=== PATIENT | male | born 1930 | race Caucasian/White ===

== ENCOUNTER 2017-07-19 11:33 | Observation (INO) | payer MEDICARE, BC ==
[~2017-07-19] VITALS: Ht 193 cm; Wt 84.1 kg
[2017-07-19 12:21] LABS: EOS # 0.3 (0.04-0.40); EOS % 4.4 % (0.0-4.0); HEMATOCRIT 31.4 % (42.0-52.0); HEMOGLOBIN 9.7 g/dL (13.5-18.0); LYMPH# 1.2 (1.50-4.00); MEAN CELL VOLUME 89 fl (78-100); MEAN CORPUSCULAR HEMOGLOBIN 28 pg (27-31); MEAN CORPUSCULAR HGB CONC 31 g/dL (33-37); MEAN PLATELET VOLUME 9.6 fl (7.4-10.4); MONO # 0.9 (0.20-0.80); NEU # 4.9 (1.40-6.50); PLATELET COUNT 235 K/mm3 (130-400); RED BLOOD COUNT 3.52 M/mm3 (4.20-5.60); RED CELL DISTRIBUTION WIDTH 14.4 % (11.5-14.5); WHITE BLOOD COUNT 7.4 K/mm3 (4.8-10.8)
[2017-07-19 12:22] LABS: ALBUMIN 3.5 g/dL (3.5-5.0); BUN/CREATININE RATIO 13.7 (6.0-26.0); CALCIUM 8.2 mg/dL (8.4-10.2); POTASSIUM 4.4 mmol/L (3.6-5.0); TOTAL BILIRUBIN 0.4 mg/dL (0.2-1.3); TOTAL PROTEIN 6.7 g/dL (6.3-8.2)
[2017-07-19 12:51] LABS: PROTHROMBIN TIME 12.7 SECONDS (9.0-12.0)
[2017-07-19] MEDS ORDERED: CARBIDOPA/LEVODOPA PO (13:02)
[2017-07-19] MEDS ORDERED: ATORVASTATIN CA80 MG PO (13:03)
[2017-07-19] MEDS ORDERED: LEVOTHYROXINE0.05 MG PO (13:04)
[2017-07-19] MEDS ORDERED: AMIODARONE200 MG PO (13:04)
[2017-07-19] MEDS ORDERED: CELEXA 20MG20 MG/TA1 PO (13:04)
[2017-07-19] MEDS ORDERED: CYCLOBENZ5 MG PO (13:05)
[2017-07-19] MEDS ORDERED: GABAPENTIN100 MG PO (13:05)
[2017-07-19] MEDS ORDERED: B-COMPLEX TABL0.4 MG PO (13:05)
[2017-07-19] MEDS ORDERED: WARFARIN SOD5 MG PO (13:07)
[2017-07-19] MEDS ORDERED: WARFARIN SODIU2.5 MG PO (13:07)
[2017-07-19] MEDS ORDERED: RIVASTIGMINE1.5 MG PO (13:08)
[2017-07-19] MEDS ORDERED: GLYCOLAX17 GM/DOSE PO (13:09)
[2017-07-19] MEDS ORDERED: HCTZ 25MG25 MG PO (13:10)
[2017-07-19] MEDS ORDERED: BACITRACIN TOPIC1 TU TP (13:35)
[2017-07-19] MEDS ORDERED: ADULT ASPIRIN R81 MG PO (13:36)
[2017-07-19] MEDS ORDERED: COLACE100 M1 PO (13:36)
[2017-07-19] MEDS ORDERED: TYLENOL EXTRA500 M2 PO (13:38)
[2017-07-19] MEDS ORDERED: VITAMIN D 1001000 IU PO (13:38)
[2017-07-19] MEDS ORDERED: OCUVITE ADULT1 EACH PO (13:39)
[2017-07-19] MEDS ORDERED: MULTI-VITAMIN1 EACH PO (13:39)
[2017-07-19] MEDS ORDERED: MAGNESIUM400 M1 PO (13:40)
[2017-07-19] MEDS ORDERED: TYLENOL 325MG325 MG PO (13:43)
[2017-07-19] MEDS ORDERED: MAALOX ADVANCE355 M1 PO (13:44)
[2017-07-19] MEDS ORDERED: GOOD NEIGH1200 MG/15 PO (13:45)
[2017-07-19] MEDS ORDERED: KAOPECTATE262 MG/15 PO (13:46)
[2017-07-19] MEDS ORDERED: DULCOLAX5 M1 PO (13:47)
[2017-07-19] MEDS ORDERED: DULCOLAX10 M1 RC (13:48)
[2017-07-19] MEDS ORDERED: TYLENOL 500MG500 MG PO ×2 (13:48→13:49)
[2017-07-19] MEDS ORDERED: LOPERAMIDE2 M2 PO (13:50)
[2017-07-19] MEDS ORDERED: CALCIUM CARBONATE PO (13:52)
[2017-07-19 22:58] VITALS: BP 163/107
[2017-07-20 04:15] VITALS: BP 160/93
[2017-07-20 06:43] VITALS: BP 176/93
[2017-07-20 07:54] LABS: EOS # 0.3 (0.04-0.40); HEMATOCRIT 30.9 % (42.0-52.0); HEMOGLOBIN 9.6 g/dL (13.5-18.0); LYMPH# 1.1 (1.50-4.00); MEAN CELL VOLUME 88 fl (78-100); MEAN CORPUSCULAR HEMOGLOBIN 27 pg (27-31); MEAN CORPUSCULAR HGB CONC 31 g/dL (33-37); MEAN PLATELET VOLUME 9.6 fl (7.4-10.4); MONO # 0.6 (0.20-0.80); NEU # 3.9 (1.40-6.50); PLATELET COUNT 235 K/mm3 (130-400); RED BLOOD COUNT 3.52 M/mm3 (4.20-5.60); RED CELL DISTRIBUTION WIDTH 14.2 % (11.5-14.5); WHITE BLOOD COUNT 5.9 K/mm3 (4.8-10.8)
[2017-07-20 07:57] LABS: EOS % 5.1 % (0.0-4.0)
[2017-07-20 08:04] LABS: BUN/CREATININE RATIO 13.4 (6.0-26.0); CALCIUM 8.6 mg/dL (8.4-10.2); POTASSIUM 4.3 mmol/L (3.6-5.0)
[2017-07-20 11:20] VITALS: BP 157/79
[2017-07-20 15:11] VITALS: BP 143/85
[2017-07-20 18:17] VITALS: BP 131/83
[2017-07-21 06:38] VITALS: BP 184/98
[2017-07-21 09:37] LABS: EOS # 0.3 (0.04-0.40); EOS % 4.1 % (0.0-4.0); HEMATOCRIT 33.9 % (42.0-52.0); HEMOGLOBIN 10.5 g/dL (13.5-18.0); LYMPH# 1.2 (1.50-4.00); MEAN CELL VOLUME 88 fl (78-100); MEAN CORPUSCULAR HEMOGLOBIN 27 pg (27-31); MEAN CORPUSCULAR HGB CONC 31 g/dL (33-37); MEAN PLATELET VOLUME 9.5 fl (7.4-10.4); MONO # 0.6 (0.20-0.80); NEU # 4.8 (1.40-6.50); PLATELET COUNT 270 K/mm3 (130-400); RED BLOOD COUNT 3.85 M/mm3 (4.20-5.60); RED CELL DISTRIBUTION WIDTH 14.2 % (11.5-14.5); WHITE BLOOD COUNT 6.9 K/mm3 (4.8-10.8)
[2017-07-21 09:54] LABS: BUN/CREATININE RATIO 12.8 (6.0-26.0); CALCIUM 8.8 mg/dL (8.4-10.2)
[2017-07-21 09:59] LABS: PROTHROMBIN TIME 11.8 SECONDS (9.0-12.0)
[2017-07-21 10:24] LABS: URINE APPEARANCE CLEAR; URINE BILIRUBIN NEGATIVE (NEGATIVE); URINE BLOOD NEGATIVE (NEGATIVE); URINE COLOR YELLOW; URINE GLUCOSE NEGATIVE (NEGATIVE); URINE KETONE NEGATIVE (NEGATIVE); URINE LEUKOCYTE ESTERASE NEGATIVE (NEGATIVE); URINE NITRATE NEGATIVE (NEGATIVE); URINE PROTEIN(semi-quant) TRACE mg/dL (NEGATIVE); URINE UROBILINOGEN NORMAL (NORMAL)
[2017-07-21 13:00] VITALS: BP 166/94
[2017-07-21 13:01] VITALS: BP 166/94
== END 2017-07-21 13:28 ==
LOC: EDBD 11:33 → ED 11:33 → MED/SURG 20:39
PROVIDERS: Physician Assistant; ADMIT Family Medicine
DX: K59.00 Constipation, unspecified (principal); F05 Delirium due to known physiological condition; G20 Parkinson's disease; F02.81 Dementia in other diseases classified elsewhere, unspecified severity, with behavioral disturbance; I48.91 Unspecified atrial fibrillation; Z79.01 Long term (current) use of anticoagulants; Z91.81 History of falling; E03.9 Hypothyroidism, unspecified; Z95.0 Presence of cardiac pacemaker; Z79.82 Long term (current) use of aspirin; S20.211A Contusion of right front wall of thorax, initial encounter; W19.XXXA Unspecified fall, initial encounter; K42.9 Umbilical hernia without obstruction or gangrene
CPT/HCPCS: G0378; J1630; J1644